=== PATIENT | male | born 1995 | race Caucasian/White ===

== ENCOUNTER 2016-12-06 17:58 | Emergency (ER) | payer SELFPAY ==
[2016-12-06 18:01] VITALS: BP 146/74; PULSE 87; RESP 20; TEMP 98.7
[2016-12-06] MEDS ORDERED: PROPARACAINE 0.5% OPHTH DROPS 15 ML BTL LEFT EYE STA (18:11)
--- NOTE | 2016-12-06 18:21 | ED ---
General Adult HPI <Khoa Cantu - Last Filed: 12/06/16 18:46> - General Source: patient, RN notes reviewed Mode of arrival: ambulatory Limitations: no limitations <Rose Mckeon - Last Filed: 12/06/16 19:01> - General Chief complaint: Eye Problems Stated complaint: eye pain Time Seen by Provider: 12/06/16 18:04 - History of Present Illness Initial comments: This is a 21-year-old male who presents with right eye irritation. Patient states on Wednesday patient removed a foreign body from the right eye at work and patient was treated for a corneal abrasion with antibiotic ointment. Patient states this was erythromycin ointment. Patient states he has been using the ointment but the pain has persisted. Patient denies blurred vision. Patient states she also has a headache to the right side and has some mild photophobia. Patient states there is crusting of the eye in the morning. Patient also states left eye was red for about one day and then improved. Patient wears prescription eyeglasses but denies wearing contacts. Patient denies any recent fever, chills, shortness breath, chest pain, abdominal pain, nausea/vomiting/ diarrhea, back pain, numbness, tingling, hematuria, or any other complaints. (Rose Mckeon) - Related Data Previous Rx's Medication Instructions Recorded traMADol HCL [Ultram] 50 mg PO Q6HR #12 tab 12/06/16 Allergies Allergy/AdvReac Type Severity Reaction Status Date / Time No Known Allergies Allergy Verified 12/06/16 18:01 Review of Systems ROS Other: All systems not noted in ROS Statement are negative. <Khoa Cantu - Last Filed: 12/06/16 18:46> ROS Other: All systems not noted in ROS Statement are negative. <Rose Mckeon - Last Filed: 12/06/16 19:01> ROS Statement: Those systems with pertinent positive or pertinent negative responses have been documented in the HPI. Past Medical History Past Medical History: No Reported History, Myocardial Infarction ([place]) History of Any Multi-Drug Resistant Organisms: None Reported Past Surgical History: Orthopedic Surgery Past Psychological History: No Psychological Hx Reported Smoking Status: Never smoker Past Alcohol Use History: Occasional Past Drug Use History: None Reported <Rose Mckeon - Last Filed: 12/06/16 19:01> General Exam <Khoa Cantu - Last Filed: 12/06/16 18:46> Limitations: no limitations <Rose Mckeon - Last Filed: 12/06/16 19:01> - General Exam Comments Initial Comments: General: The patient is awake and alert, in no distress, and does not appear acutely ill. Eye: Pupils are equal, round and reactive to light, extra-ocular movements are intact. No pain with extraocular movements. No foreign body noted with eyelid eversion. No nystagmus. There is normal conjunctiva bilaterally. No signs of icterus. Ears: TMs pink and pearly with intact cone of light bilaterally. Normal external ear canals Nose: Nasal turbinates pink and moist Mouth and throat: There are moist mucous membranes and no oral lesions. Neck: The neck is supple, there is no tenderness or JVD. Cardiovascular: There is a regular rate and rhythm. No murmur, rub or gallop is appreciated. Respiratory: Lungs are clear to auscultation, respirations are non-labored, breath sounds are equal. No wheezes, stridor, rales, or rhonchi. Musculoskeletal: Normal ROM, no tenderness. Strength 5/5. Sensation intact. Radial pulses equal bilaterally 2+. Neurological: A&O x 3. CN II-XII intact, There are no obvious motor or sensory deficits. Coordination appears grossly intact. Speech is normal. Skin: Skin is warm and dry and no rashes or lesions are noted. Psychiatric: Cooperative, appropriate mood & affect, normal judgment. (Rose Mckeon) Procedures <Khoa Cantu - Last Filed: 12/06/16 18:46> <Rose Mckeon - Last Filed: 12/06/16 19:01> - Procedures Initial comment: Proparacaine was used to anesthetize the eye with fluorescein stain. Patient had some relief after proparacaine was applied. Patient's eye was viewed under the slit lamp. There was mild uptake noted to the 7 o'clock position. No foreign body noted. No foreign body or abnormality noted with eyelid eversion. No hyphema, no hypopyon. Patient tolerated the procedure well. (Rose Mckeon) Medical Decision Making <Khoa Cantu - Last Filed: 12/06/16 18:46> <Rose Mckeon - Last Filed: 12/06/16 19:01> - Medical Decision Making Medical decision-making. Is asked look at the patient because he complained of discomfort around the eye. He reports 3 days ago he got something in the eye a black speck which she removed and saw on the paper. He then went to the [place] emergency room diagnosed with a corneal abrasion placed on erythromycin ointment. Which immediately for several days. Complains discomfort around the eye visual acuity test reported to be normal. Pressure 21. Extraocular movements are normal. No evidence of a scleritis. Pupils equal and reactive. Eye was examined both upper and lower no foreign body noted. No corneal abrasion noted on direct observation with ophthalmoscope. The patient was told not to drive while using the ointment in having any eye pain. He'll be placed on some pain medication, told to continue with his ointment and follow-up with an eye doctor either here if he stays or back in [place] where he lives. Dr. Cantu (PepeKhoa) This is a 21-year-old male presents with right eye irritation. Patient is currently being treated for corneal abrasion but states the pain is not improved. On physical exam visual acuity is equal on both sides. Pupils are equal, round and reactive to light, extra-ocular movements are intact. No nystagmus. There is normal conjunctiva bilaterally. No signs of icterus. Tonometry shows 21 mmHg. Proparacaine was used to anesthetize the eye with fluorescein stain. Patient had some relief after proparacaine was applied. Patient's eye was viewed under the slit lamp. There was mild uptake noted to the 7 o'clock position. No foreign body noted. No foreign body or abnormality noted with eyelid eversion. No hyphema, no hypopyon. Patient tolerated the procedure well. Discussed that patient should continue erythromycin ointment up to 4 times per day and follow-up with ophthalmology when he gets home to [place]. 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 I discussed tramadol for breakthrough pain. I discussed return parameters. Please use medication as discussed. Please follow-up with family doctor in the next 2 days of symptoms have not improved. Please return to emergency room if the symptoms increase or worsen or for any other concerns. I discussed this case with attending physician Dr. Cantu who also examined the patient and agrees with plan as stated above. (Rose Mckeon) Disposition <Khoa Cantu - Last Filed: 12/06/16 18:46> Time of Disposition: 18:54 <Rose Mckeon - Last Filed: 12/06/16 19:01> Clinical Impression: Corneal abrasion, Headache Disposition: HOME SELF-CARE Condition: Good Instructions: Corneal Abrasion (ED) Additional Instructions: Please continue erythromycin ointment 4 times a day. Please follow-up with ophthalmology either back home in [place] or locally. Please continue Tylenol and Motrin for pain. Please use tramadol for breakthrough pain.Please use medication as discussed. Please follow-up with family doctor in the next 2 days of symptoms have not improved. Please return to emergency room if the symptoms increase or worsen or for any other concerns. Prescriptions: traMADol HCL [Ultram] 50 mg PO Q6HR #12 tab Referrals: None,Stated [Primary Care Provider] - 1-2 days Hubert Galvan MD [STAFF PHYSICIAN] - 1-2 days
[2016-12-06] MEDS ORDERED: ACETAMINOPHEN TAB 500 MG TAB PO STA (18:39)
== END 2016-12-06 18:58 | disposition home or self-care (01) ==
LOC: EC 17:58
DX: S05.01XD Injury of conjunctiva and corneal abrasion without foreign body, right eye, subsequent encounter (principal); X58.XXXD Exposure to other specified factors, subsequent encounter
CPT/HCPCS: 99283